=== PATIENT | female | born 2005 | race Caucasian/White ===

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

== ENCOUNTER 2023-02-23 09:52 | Outpatient (REF) | payer OTHER, SELFPAY ==
[2023-02-24 13:24] LABS: Chlamydia Result Negative (Negative); GC Result Negative (Negative)
== END 2023-02-23 09:53 | disposition home or self-care (01) ==
LOC: LBN 09:52
PROVIDERS: PCP Nurse Practitioner Family; Visit Provider Nurse Practitioner Women's Health
DX: Z11.3 Encounter for screening for infections with a predominantly sexual mode of transmission (principal)
CPT/HCPCS: 87491; 87591

== ENCOUNTER 2025-05-21 11:28 | Outpatient (REF) | payer OTHER, SELFPAY ==
--- NOTE | 2025-05-21 11:00 | PAPFT_PTH ---
PATIENT: Taniya Choudhary LOC: [facility] U#:[id number] AGE/SX: 19/F ROOM: RE05/21/[address]: Reena Roberts NP : 2005 BED: DIS: 05/21/2025 SPEC #: [id number] RECD: 05/21/25 13:03 STATUS: LORNE BARRERA #: [id number] KATI: 05/21/25 11:[address]: Reena Roberts NP DEPT: [facility] Cytology RECD BY: Corin Luther ENTERED: 05/21/25 13:03 SP TYPE: PAPFT NAHUM DR: Miesha Dee Tissues: 1 - CX/ENDOCX FOR PAP SMEARS Procedures: PAP THIN PREP/[facility] Screening Comments: [id number]
== END 2025-05-21 11:29 | disposition home or self-care (01) ==
LOC: LBN 11:28
PROVIDERS: PCP Nurse Practitioner Family; Visit Provider Nurse Practitioner Women's Health
DX: Z12.4 Encounter for screening for malignant neoplasm of cervix (principal)
CPT/HCPCS: 88142